=== PATIENT | male | born 1980 | race Caucasian/White ===

== ENCOUNTER 2023-12-01 18:40 | Emergency (ER) | payer BC, SELFPAY ==
--- NOTE | 2023-12-01 | CRLHL7_ITS ---
For Patients: As a result of the Century Cures Act, medical imaging exams and procedure reports are released immediately into your electronic medical record. You may view this report before your referring provider. If you have questions, please contact your health care provider. INDICATION: Left-sided headache. TECHNIQUE: CT angiography of the head and neck performed following intravenous contrast. COMPARISON: None. FINDINGS: CTA neck: The innominate and subclavian arteries are widely patent. The common carotid arteries are widely patent. The internal carotid arteries are widely patent. Mild atherosclerotic calcifications at the carotid bifurcations. The vertebral arteries are codominant and widely patent. No arterial dissection. No concerning opacities in the visualized lungs. CT abdomen: The internal carotid, middle cerebral, and anterior cerebral arteries are widely patent. The vertebral, basilar, and posterior cerebral arteries are widely patent. No intracranial aneurysm or high-flow vascular malformation. IMPRESSION Widely patent cervical and intracranial vasculature. Please note that all CT scans at this facility use dose modulation, iterative reconstruction, and/or weight-based dosing when appropriate to reduce radiation dose to as low as reasonably achievable. Dictated by Zach Sauceda MD @ 12/01/2023 8:20:55 PM (Electronically Signed)
[2023-12-01 18:51] VITALS: BP 138/89; PULSE 85; RESP 18; TEMP 36.7; O2SAT 97; BMI 33.2
--- NOTE | 2023-12-01 19:18 | CRLHL7_ITS ---
For Patients: As a result of the Century Cures Act, medical imaging exams and procedure reports are released immediately into your electronic medical record. You may view this report before your referring provider. If you have questions, please contact your health care provider. INDICATION: Left-sided headache. TECHNIQUE: Axial noncontrast CT cuts were performed from skull base to vertex. COMPARISON: 08/10/2013 FINDINGS: There is no intracranial mass, hemorrhage, infarction or contusion. There is no midline shift or transtentorial herniation. The calvarium is intact. There is a 10 mm mucous tension cyst within the right maxillary sinus that was present on the 2013 scan. The paranasal sinuses are otherwise normally aerated. The orbital contents appear normal. IMPRESSION: No significant abnormality. Please note that all CT scans at this facility use dose modulation, iterative reconstruction, and/or weight-based dosing when appropriate to reduce radiation dose to as low as reasonably achievable. Dictated by Iván Ramos MD @ 12/01/2023 8:07:37 PM (Electronically Signed)
--- NOTE | 2023-12-01 19:29 | ED.HA ---
HPI - Headache General Date Seen: 12/01/23 Chief Complaint: Headache/Migraine Stated Complaint: severe headache Time Seen by Provider: 12/01/23 18:59 Source: patient and family Mode of arrival: ambulatory Limitations: no limitations History of Present Illness HPI Narrative: Patient is a 43-year-old gentleman who suffered from a headache he tells me for the last week it waxes and wanes but rate now it is worse, and a little different than his normal headaches, he does have a lot a headaches, does have a history of migraines and chronic pain, and fibromyalgia. Describes this headache over the left side just behind his eye. No neck stiffness associated with this no numbness tingling or weakness, but has noted some floaters or visual changes in his left eye. He is not nauseous has not vomited, he has had no fevers or chills associated with this. And there has been no weakness, he has been able to function least up until today. He has been taking his normal medications which are ibuprofen 800 mg p.o. t.i.d. and lisinopril 10 mg p.o. t.i.d.. No recent travel no invasive tests have been done on him. He does not think he has ever been to the emergency department before for headaches. But has been diagnosed with migraines in the past was trialed on Maxalt which she is actually allergic to. MD elicited complaint: headache Pertinent past history: hypertension Onset (ago): week(s) Onset description: gradually Location: left and frontal Severity: severe Quality & Timing: throbbing, pulsatile and different than previous headaches Exacerbating factors: exertion, sitting/standing, light and noise Relieving factors: NSAIDs, dark room and sleep Associated symptoms: scotoma Treatments prior to arrival: ibuprofen Related Data Home Medications ?Medication ?Instructions ?Recorded ?Confirmed clobetasol 0.05 % topical cream topical BID 12/01/23 clobetasol 0.05 % topical ointment topical BID 12/01/23 epinephrine 0.3 mg/0.3 mL 0.3 ml IM anaphylaxis 12/01/23 injection, auto-injector lisinopril 10 mg tablet 10 mg PO DAILY 12/01/23 12/01/23 mupirocin 2 % topical ointment topical BID 12/01/23 triamcinolone acetonide 0.025 % applic topical BID 12/01/23 topical cream Allergies Allergy/AdvReac Type Severity Reaction Status Date / Time azithromycin Allergy Severe Verified 12/01/23 19:52 acetaminophen [From Vicodin] Allergy Intermediate Verified 12/01/23 19:52 amoxicillin Allergy Intermediate Verified 12/01/23 19:52 cephalexin Allergy Intermediate Verified 12/01/23 19:52 hydrocodone [From Vicodin] Allergy Intermediate Verified 12/01/23 19:52 rizatriptan [From Maxalt] Allergy Intermediate Verified 12/01/23 19:52 buprenorphine [From Butrans] Allergy Mild Verified 12/01/23 19:52 gluten Allergy Mild Verified 12/01/23 19:52 Sulfa (Sulfonamide Allergy Unknown Verified 12/01/23 19:52 Antibiotics) Review of Systems Status of ROS: Reports: 10 or more systems reviewed and unremarkable except as noted in History and below [facility] Social History service: No Exam Narrative: Exam Narrative: On examination in room 3 he is in no apparent distress he is actually in a dark room when asked him if the lights bother his eyes he said no. Alert oriented x3, GCS is 15/15, nontoxic. Smells of tobacco, pupils are equal round reactive to light he tracks normally with absence of nystagmus, visual olivares are normal in checked, TMs are normal cranial nerves 3-12 are normal, sensation is normal over his face, carotid upstrokes are equal bilaterally, JVP is flat there is no meningismus noted. Chest is good air entry bilaterally with no wheezing crackles noted, heart sounds no clicks murmurs or gallops abdomen is soft and slightly obese he moves all extremities independently and well, [id number] find more movements and fingers nose testing is normal. Heel-mandujano testing is normal. Client Retention Specialist strengths are equal both proximal and distal muscle groups are checked and normal. Skin reveals no rash. Const: Vital Signs, click to edit/add: Vital Signs - 24 hr 12/01/23 18:51 Temperature 98.1 F Pulse Rate [Right Pulse Oximeter] 85 Respiratory Rate 18 Blood Pressure [Ri ght Upper Arm] 138/89 Pulse Oximetry 97 Oxygen Delivery Me thod Room Air Documenting provider has reviewed patient's vital signs: yes Course Reevaluation(s) Time of Reevaluation #1: 21:15 Reevaluation #1: Patient is snoring and sleeping, so clearly the pain is a lot better, I reviewed with his , that the laboratory work was normal, no evidence of elevated CRP. White blood cell count or other worrisome findings. CT and CTA were all normal. At this point I think it is more likely migraine headache a repeat send him home. They were comfortable with this plan. Vital Signs Vital signs: Initial Vital Signs Temperature 98.1 F 12/01/23 18:51 Temperature Source Temporal Artery Scan 12/01/23 18:51 Pulse Rate 85 12/01/23 18:51 Pulse Rhythm Regular 12/01/23 18:51 Pulse Strength 3+ Normal 12/01/23 18:51 Respiratory Rate 18 12/01/23 18:51 Blood Pressure 138/89 12/01/23 18:51 Blood Pressure Mean 105 12/01/23 18:51 Blood Pressure Position Sitting 12/01/23 18:51 Pulse Oximetry 97 12/01/23 18:51 Oxygen Delivery Method Room Air 12/01/23 18:51 Vital Signs Temperature 98.1 F 12/01/23 18:51 Pulse Rate 85 12/01/23 18:51 Respiratory Rate 18 12/01/23 18:51 Blood Pressure 138/89 12/01/23 18:51 Pulse Oximetry 97 12/01/23 18:51 Oxygen Delivery Method Room Air 12/01/23 18:51 Temperature 98.1 F 12/01/23 18:51 Pulse Rate 85 12/01/23 18:51 Respiratory Rate 18 12/01/23 18:51 Blood Pressure 138/89 12/01/23 18:51 Pulse Oximetry 97 12/01/23 18:51 Oxygen Delivery Method Room Air 12/01/23 18:51 Medications Administered Medications: Discontinued Medications Generic Name Dose Route Start Last Admin Trade Name Freq PRN Reason Stop Dose Admin Sodium Chloride 1,000 mls @ 1,000 mls/hr 12/01/23 19:30 12/01/23 19:48 0.9 % Sodium Chloride 1000 Ml IV 12/01/23 20:29 1,000 mls/hr .Q1H REGINA Administration Metoclopramide HCl 10 mg/ 102 mls @ 306 mls/hr 12/01/23 19:16 12/01/23 20:16 Sodium Chloride IVPB 12/01/23 19:17 Infused ONCE ONE Infusion Diphenhydramine HCl 50 mg/ 101 mls @ 404 mls/hr 12/01/23 19:17 12/01/23 20:16 Sodium Chloride IVPB 12/01/23 19:18 Infused ONCE ONE Infusion Ketorolac Tromethamine 30 mg 12/01/23 19:16 12/01/23 19:46 Ketorolac 30 Mg/Ml Inj IVP 12/01/23 19:17 30 mg ONCE ONE Administration Lorazepam 0.5 mg 12/01/23 19:18 12/01/23 19:46 Lorazepam 2 Mg/Ml Inj IVP 12/01/23 19:19 0.5 mg ONCE ONE Administration MDM - Headache Medical Records Attestation: I reviewed the patient's medical records. Lab Data Attestation: I reviewed the patient's lab results. Labs: Lab Results 12/01/23 Range/Units 19:32 WBC 8.93 (4.50-11.00) K/uL RBC 4.51 (4.30-5.90) m/uL Hgb 13.9 (13.5-17.5) gm/dL Hct 42.3 (37.0-53.0) % MCV 94 (80-100) fL MCH 31 (26-34) pg MCHC 33 (32-36) gm/dL RDW Coeff of Steven 12.4 (11.5-15.5) % Plt Count 201 (140-440) K/uL Neut % (Auto) 56.4 (42.0-72.0) % Lymph % (Auto) 35.2 (20-44) % [place] % (Auto) 7.2 (0.0-11.0) % Eos % (Auto) 0.9 (0.0-7.0) % Baso % (Auto) 0.1 (0.0-3.0) % Neut # (Auto) 5.04 (1.7-7.0) K/uL Lymph # (Auto) 3.14 H (0.90-2.90) K/uL [place] # (Auto) 0.60 (0.00-0.90) K/UL Eos # (Auto) 0.08 (0.00-0.50) K/uL Baso # (Auto) 0.01 (0.00-0.30) K/uL Abs Immat Gran (auto) 0.02 (0.00-0.30) K/uL Imm/Tot Granulo (auto) 0.2 % Sodium 137 (135-149) mmol/L Potassium 3.8 (3.6-5.1) mmol/L Chloride 104 (96-114) mmol/L Carbon Dioxide 26 (20-32) mmol/L Anion Gap 7 (7-15) mEq/L BUN 24 (5-24) mg/dL Creatinine 0.7 (0.5-1.5) mg/dL Estimated Creat Clear 147.81 Estimated GFR 117 ml/min Glucose 135 H (60-115) mg/dL Calcium 9.3 (8.4-10.6) mg/dL C-Reactive Protein < 0.5 L (0.5-1.0) mg/dL Procalcitonin < 0.03 L (<0.50) ng/mL Imaging Data CT scan - head: Attestation: I have reviewed the pertinent imaging results. My impression: Negative head CT Radiologist's impression: Patient: TERRIE GARCIA Facility:?[facility] Patient ID:?[id number] Site Patient ID:?[id number]. Site :?[id number] Study:?CT-Head Angio 95CC ISOVUE 370 NON ACUTE-12/01/2023 7:51:18 PM Ordering Physician:?Walter Strickland Final Report: INDICATION: Left-sided headache. TECHNIQUE: CT angiography of the head and neck performed following intravenous contrast. COMPARISON: None. FINDINGS: CTA neck: The innominate and subclavian arteries are widely patent. The common carotid arteries are widely patent. The internal carotid arteries are widely patent. Mild atherosclerotic calcifications at the carotid bifurcations. The vertebral arteries are codominant and widely patent. No arterial dissection. No concerning opacities in the visualized lungs. CT abdomen: The internal carotid, middle cerebral, and anterior cerebral arteries are widely patent. The vertebral, basilar, and posterior cerebral arteries are widely patent. No intracranial aneurysm or high-flow vascular malformation. IMPRESSION Widely patent cervical and intracranial vasculature. Please note that all CT scans at this facility use dose modulation, iterative reconstruction, and/or weight-based dosing when appropriate to reduce radiation dose to as low as reasonably achievable. Dictated by Zach Sauceda MD @ 12/01/2023 8:21:20 PM (Electronic Signature) Patient: TERRIE GARCIA Facility:?[facility] Patient ID:?[id number] Site Patient ID:?[id number]. Site :?1980 Study:?CT-Neck Angio Angio 95CC ISOVUE 370 NON ACUTE-12/01/2023 7:52:04 PM Ordering Physician:Antonia Strickland Final Report: INDICATION: Left-sided headache. TECHNIQUE: CT angiography of the head and neck performed following intravenous contrast. COMPARISON: None. FINDINGS: CTA neck: The innominate and subclavian arteries are widely patent. The common carotid arteries are widely patent. The internal carotid arteries are widely patent. Mild atherosclerotic calcifications at the carotid bifurcations. The vertebral arteries are codominant and widely patent. No arterial dissection. No concerning opacities in the visualized lungs. CT abdomen: The internal carotid, middle cerebral, and anterior cerebral arteries are widely patent. The vertebral, basilar, and posterior cerebral arteries are widely patent. No intracranial aneurysm or high-flow vascular malformation. IMPRESSION Widely patent cervical and intracranial vasculature. Please note that all CT scans at this facility use dose modulation, iterative reconstruction, and/or weight-based dosing when appropriate to reduce radiation dose to as low as reasonably achievable. Dictated by Zach Sauceda MD @ 12/01/2023 8:20:55 PM (Electronic Signature) Discharge Plan Discharge Clinical Impression: Headache Patient Disposition: Home w/ Parent or Adult Condition: Stable Instructions: Acute Headache (DC) Additional Instructions: Head CT and CTA of his head neck show no acute abnormality widely patent, given what I seen from history examination, I believe that this is likely a migraine, I would like you to go home and sleep, follow-up with regular physician if consideration of other treatments, return here if fevers chills worsening pain, Prescriptions: No Action clobetasol 0.05 % cream topical BID triamcinolone acetonide 0.025 % cream topical BID lisinopril 10 mg tablet 10 mg PO DAILY mupirocin 2 % ointment topical BID clobetasol 0.05 % ointment topical BID epinephrine 0.3 mg/0.3 mL auto-injector 0.3 ml IM Follow Up/Referrals: Provider,Not a Local [Primary Care Provider] - Stand Alone Forms: [employer] Info Instructions
[2023-12-01 19:38] LABS: Basophils Absolute Auto 0.01 K/uL (0.00-0.30); Basophils Percent Auto 0.1 % (0.0-3.0); Eosinophils Absolute Auto 0.08 K/uL (0.00-0.50); Eosinophils Percent Auto 0.9 % (0.0-7.0); Hematocrit 42.3 % (37.0-53.0); Hemoglobin* 13.9 gm/dL (13.5-17.5); Immature Granulocytes Abs Auto 0.02 K/uL (0.00-0.30); Immature Granulocytes Pct Auto 0.2 %; Lymphocytes Absolute Auto 3.14 K/uL (0.90-2.90); Lymphocytes Percent Auto 35.2 % (20-44); Mean Corpuscular HGB Conc 33 gm/dL (32-36); Mean Corpuscular Hemoglobin 31 pg (26-34); Mean Corpuscular Volume 94 fL (80-100); Monocytes Percent Auto 7.2 % (0.0-11.0); Neutrophils Absolute Auto 5.04 K/uL (1.7-7.0); Neutrophils Percent Auto 56.4 % (42.0-72.0); Platelet Count* 201 K/uL (140-440); RDW Coefficient of Variation % 12.4 % (11.5-15.5); Red Blood Count 4.51 m/uL (4.30-5.90); White Blood Count* 8.93 K/uL (4.50-11.00)
[2023-12-01 19:41] LABS: Slide Review Reflex No
[2023-12-01] MEDS: METOCLOPRAMIDE HCL 10 MG in 0.9 % SODIUM CHLORIDE 100 ml 100 ML 306 MG IVPB (19:45)
[2023-12-01] MEDS: LORazepam 2 MG/ML inj 0.5 MG IVP (19:46)
[2023-12-01] MEDS: KETOROLAC 30 MG/ML inj IVP (19:46)
[2023-12-01] MEDS: 0.9 % SODIUM CHLORIDE 1000 ml 1,000 ML IV (19:48)
[2023-12-01] MEDS: diphenhydrAMINE 50 MG in 0.9 % SODIUM CHLORIDE 100 ml 100 ML 404 MG IVPB (19:48)
[2023-12-01 19:58] LABS: Chloride* 104 mmol/L (96-114); Potassium* 3.8 mmol/L (3.6-5.1); Sodium* 137 mmol/L (135-149)
[2023-12-01 20:00] LABS: Creatinine* 0.7 mg/dL (0.5-1.5); Est. Creatinine Clearance* 147.81; Estimated Glomerular Filt Rate 117 ml/min
[2023-12-01 20:01] LABS: Anion Gap 7 mEq/L (7-15); Blood Urea Nitrogen* 24 mg/dL (5-24); Calcium* 9.3 mg/dL (8.4-10.6); Carbon Dioxide* 26 mmol/L (20-32); Glucose* 135 mg/dL (60-115)
[2023-12-01 20:10] LABS: C Reactive Protein* < 0.5 mg/dL (0.5-1.0)
[2023-12-01 20:19] LABS: Procalcitonin* < 0.03 ng/mL (<0.50)
== END 2023-12-01 21:26 | disposition home or self-care (01) ==
PROVIDERS: Emergency Provider Family Medicine
DX: R51.9 Headache, unspecified (principal)
CPT/HCPCS: 36415; 70450; 70496; 70498; 80048; 84145; 85025; 86140; 96365; 96368; 96375; 99284; 99285; J1200; J1885; J2060; J2765; J7030; Q9967